=== PATIENT | male | born 1965 | race Caucasian/White ===

== ENCOUNTER 2024-05-27 22:13 | Emergency (ER) | payer OTHER ==
[~2024-05-27 22:13] MED LIST: Iopamidol 370 76% 100 ML VIAL ONE
[2024-05-27] MEDS ORDERED: Dicyclomine 20 MG/2 ML VIAL ONE (22:28)
[2024-05-27] MEDS ORDERED: Ondansetron PF 4 MG/2 ML Vial ONE (22:29)
[2024-05-27] MEDS ORDERED: Famotidine/PF 20 mg/2ml Vial ONE (22:29)
[2024-05-27 22:46] LABS: Band 6 % (5-11); Eosinophils 3 % (0-10); Hematocrit 40.6 % (42.0-52.0); Hemoglobin 12.1 g/dL (14.0-18.0); Lymphocytes 8 % (21-51); MDiff Complete? YES; Mean Corpuscular HGB CONC 29.8 g/dL (32.0-36.0); Mean Corpuscular Hemoglobin 24.6 pg (27.0-31.0); Mean Corpuscular Volume 82.6 fl (78.0-98.0); Mean Platelet Volume 9.5 fL (7.4-10.4); Monocytes 6 % (0-10); Neutrophil 77 % (42-75); Platelet Adequacy Comment Appears Adequate; Platelet Count 361 10x3/uL (130-400); RBC Distribution Width 13.1 % (11.5-14.5); Red Blood Cell (RBC) Count 4.91 mill/uL (4.70-6.10)
[2024-05-27 22:54] LABS: ALT (SGPT) 14 U/L (8-55); AST (SGOT) 9 U/L (5-34); Albumin 3.8 g/dL (3.5-5.0); Alkaline Phosphatase 107 U/L (40-110); Anion Gap 16 mmol/L (10-20); BUN (Urea Nitrogen) 19 mg/dL (8.4-25.7); Bilirubin, Total 0.2 mg/dL (0.2-1.2); Calc. Creatinine Clearance 0 mL/min (70-130); Calcium 9.7 mg/dL (7.8-10.44); Carbon Dioxide 26 mmol/L (22-29); Chloride 97 mmol/L (98-107); Estimated GFR 91; Globulin 3.7 g/dL (2.4-3.5); Glucose 375 mg/dL (70-105); Lipase 60 U/L (8-78); Potassium 4.4 mmol/L (3.5-5.1); Protein, Total 7.5 g/dL (6.0-8.3); Sodium 135 mmol/L (136-145)
[2024-05-27] MEDS ORDERED: Ketorolac Tromethamine 30 MG (1 mL) VIAL ONE (22:57)
[2024-05-27] MEDS ORDERED: Promethazine HCl 25 MG/ML VIAL ONE (22:57)
[2024-05-27] MEDS ORDERED: Morphine 4 MG/ML VIAL ONE (22:57)
[2024-05-27] MEDS ORDERED: Lactated Ringer's 1,000 ML ONE (22:57)
[2024-05-27 23:23] LABS: Bilirubin Negative (Negative); Blood, Urine Negative (Negative); CAUTI Indications for Culture Dysuria,urgency,freq; Clarity Clear (Clear); Glucose, Urine (Dipstick) 500 mg/dL (Negative); Ketone, Urine 40 mg/dL (Negative); Leukocyte Negative (Negative); Nitrite Negative (Negative); Protein, Urine (Dipstick) 100 mg/dL (Neg-Trace); RBC/HPF 0-3 HPF (0-3); Squamous Epithelial 0-3 HPF (0-3); Urine Culture Reflex No No; Urobilinogen 0.2 mg/dL (Less than 2); WBC/HPF None Seen HPF (0-3); pH, Urine 6.5 (5.0-9.0)
== END 2024-05-28 00:43 | disposition home or self-care (01) ==
LOC: MADERS 22:13
DX: K50.00 Crohn's disease of small intestine without complications (principal); E11.65 Type 2 diabetes mellitus with hyperglycemia; K56.7 Ileus, unspecified; K80.20 Calculus of gallbladder without cholecystitis without obstruction
CPT/HCPCS: 74177; 80053; 81001; 83605; 83690; 85025; 93005; 94760; 96361; 96365; 96372; 96375; J1885; J2270; J2405; J2550; J3490; J7120; Q9967